=== PATIENT | male | born 2000 | race Caucasian/White ===

== ENCOUNTER 2025-04-15 18:50 | Emergency (ER) | payer SELFPAY ==
[~2025-04-15] VITALS: Ht 185.4 cm; Wt 82.0 kg
[2025-04-15 18:52] VITALS: O2SAT 99
[2025-04-15] MEDS: KETOROLAC 30MG/ML VIAL IM ONE ×2 (21:27→21:56)
[2025-04-15] MEDS: LIDOCAINE 5% PATCH TOP SCH (21:28)
[2025-04-15] MEDS ORDERED: IBUP-2028 MT (21:43)
[2025-04-15] MEDS ORDERED: LIDO-53 TP (21:43)
[2025-04-15 22:00] VITALS: BP 126/78; PULSE 68; RESP 18; TEMP 36.8; O2SAT 100
== END 2025-04-15 22:02 | disposition home or self-care (01) ==
LOC: ER 18:50
DX: M79.602 Pain in left arm (principal)
CPT/HCPCS: 99283; 73090; 96372; J1885